=== PATIENT | male | born 1990 | race Caucasian/White ===

== ENCOUNTER 2020-09-03 09:02 | Emergency (ER) | payer MEDICAID ==
[~2020-09-03] VITALS: Ht 195.6 cm; Wt 86.0 kg
[2020-09-03 09:19] VITALS: BP 127/72
[2020-09-03] MEDS ORDERED: CLIN300C70 PO (09:37)
== END 2020-09-03 09:48 | disposition home or self-care (01) ==
LOC: ER 09:03
DX: K04.7 Periapical abscess without sinus (principal); Z79.899 Other long term (current) drug therapy
CPT/HCPCS: 99283

== ENCOUNTER 2021-07-15 19:09 | Inpatient (IN) | payer MEDICAID ==
[~2021-07-15] VITALS: Ht 200.7 cm; Wt 90.9 kg
[2021-07-15 20:53] LABS: BASOPHILS # (AUTO) 0.1 X10'3 (0-0.2); BASOPHILS % (AUTO) 0.6 % (0-1); EOSINOPHILS # (AUTO) 0.1 X10'3 (0-0.9); EOSINOPHILS % (AUTO) 1.8 % (0-6); HEMATOCRIT 39.9 % (42.0-52.0); HEMOGLOBIN 13.5 g/dl (14.0-17.9); LYMPHOCYTES # (AUTO) 1.9 X10'3 (1.1-4.8); MEAN CORPUSCULAR HEMOGLOBIN 30.2 PG (27.0-31.0); MEAN CORPUSCULAR HGB CONC 33.8 g/dL (33.0-36.5); MEAN CORPUSCULAR VOLUME 89.3 FL (78-98); MEAN PLATELET VOLUME 8.4 FL (7.4-10.4); MONOCYTES # (AUTO) 1.2 X10'3 (0-0.9); MONOCYTES % (AUTO) 14.2 % (2-12); NEUTROPHILS % (AUTO) 60.4 % (42-75); PLATELET COUNT 290 X10'3 (140-440); RED BLOOD COUNT 4.46 X10'6 (4.70-6.10); WHITE BLOOD COUNT 8.2 X10'3 (4.5-11.0)
--- NOTE | 2021-07-15 21:00 | NUR ---
Patient belongings in locker 24
[2021-07-15 22:51] LABS: CLARITY,URINE CLEAR (Clear); COLOR,URINE YELLOW (Yellow); GLUCOSE, URINE NEGATIVE (Neg); KETONES,URINE 80 mg/dl (Neg); LEUKOCYTE ESTERASE ,URINE NEGATIVE (Neg); NITRITES, URINE NEGATIVE (Neg); OCCULT BLOOD,URINE NEGATIVE (Neg); PROTEIN,URINE NEGATIVE (Neg); UA COLLECTION TYPE VOIDED; UROBILINOGEN,URINE 0.2 E.U/dL (0.2-1.0)
[2021-07-15 22:58] LABS: ANION GAP 8 (8-16); BILIRUBIN,TOTAL 0.4 MG/DL (0.1-1.0); BLOOD UREA NITROGEN 7 MG/DL (7-18); BUN/CREATININE RATIO 9.5 (5.4-32.0); CALCIUM 8.8 MG/DL (8.5-10.1); CHLORIDE 108 MMOL/L (99-107); CREATININE 0.74 MG/DL (0.60-1.10); GLUCOSE 86 MG/DL (70-104); POTASSIUM 3.8 MMOL/L (3.5-5.1); SODIUM 143 MMOL/L (135-145); TOTAL CARBON DIOXIDE 27.4 MMOL/L (24-32); eGFR > 90 ML/MIN
[2021-07-15 22:59] LABS: ALANINE AMINOTRANSFERASE 42 U/L (12-78); ALBUMIN/GLOBULIN RATIO 1.3 (1.1-1.5); ALKALINE PHOSPHATASE 63 IU/L (46-116); ASPARTATE AMINO TRANSFERASE 51 U/L (10-37); ETHANOL < 0.010 GM/DL (0.0-0.010); TOTAL PROTEIN 7.1 G/DL (6.4-8.2)
[2021-07-15 23:05] LABS: URINE AMPHETAMINE SCREEN NEGATIVE (Neg); URINE BARBITUATE SCREEN NEGATIVE (Neg); URINE BENZODIAZEPINES SCREEN NEGATIVE (Neg); URINE CANNABINOID SCREEN POSITIVE (Neg); URINE COCAINE SCREEN NEGATIVE (Neg); URINE METHADONE SCREEN NEGATIVE (Neg); URINE OPIATE SCREEN NEGATIVE (Neg); URINE PHENCYCLIDINE SCREEN NEGATIVE (Neg)
[2021-07-16] MEDS ORDERED: NO HOME MEDS (05:13)
--- NOTE | 2021-07-16 11:45 | NUR ---
RN received pt. from [facility] ER. Pt. is noticeably tense, pacing back and forth in his room. When RN approached pt. and introduced himself, pt. is jumpy and loudly responds, "I'm not crazy, I've just been in bed all day". Pt. given water and a sandwich. 1:1 done at bedside, Pt. reports he does not know why he is here, stating "I wrote a song about quiting work and my family put me in here". Pt. denies SI/HI, A/V hallucinations. Pt. states, "I have my son to live for. 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 reports increased anxiety and asks, "what can someone do for panic attacks?" RN informed pt. that Ativan can be given for breakthrough anxiety, pt. responds, "I don't want to take medications". RN asked if pt. was getting therapy, pt. responds, "I've been trying with VTEX but it takes forever". Pt. states, "I just need to get out of here and get a cigarette, RN asked pt. if he would like a nicotine patch and pt. refused.
--- NOTE | 2021-07-16 14:00 | NUR ---
Pt. asleep in be on left side. Normal R&R of respirations observed. Pt. in no apparent distress.
--- NOTE | 2021-07-16 16:00 | NUR ---
Pt. awoke and began pacing in his room. Pt. informed of being placed on a 5150. Pt. states, "I will be getting a boilermaker". Pt. continued pacing in his room.
[2021-07-16] MEDS ORDERED: nicotine 21mg patch - 24 hr TD ONE (17:35)
--- NOTE | 2021-07-16 18:00 | NUR ---
RN received phone call from Roney in [facility] stating that pt. has been accepted to [facility] per [facility] office (Shannan). Pt. is calm sitting in bed and eating dinner and reading a book.
--- NOTE | 2021-07-16 18:53 | NUR ---
Pt finishing up with dinner, pt calm and cooperative, pacing as he states "I just get tired of sitting" pt denies SI and states he feels depressed. Pt currently reading a book.
--- NOTE | 2021-07-16 20:28 | NUR ---
Pt awaiting to be transferred to [facility].
[2021-07-16] MEDS ORDERED: magnesium hydroxide 30ml (MOM) UD suspension PO PRN (20:55)
[2021-07-16] MEDS ORDERED: traZODone 50mg tablet PO PRN (20:55)
[2021-07-16] MEDS ORDERED: acetaminophen 325mg tablet PO PRN ×2 (20:55)
[2021-07-16] MEDS ORDERED: LORazepam 1 MG tablet PO PRN (20:55)
[2021-07-16] MEDS ORDERED: loperamide 2mg capsule PO PRN (20:55)
[2021-07-16] MEDS ORDERED: mag hydrox/Alum hydrox/simeth 30ml oral suspension PO PRN (20:55)
[2021-07-16 21:15] VITALS: BP 148/85
--- NOTE | 2021-07-16 22:52 | NUR ---
Nursing Progress Note: Admit to Behavioral Health Legal hold: 5150 Client on involuntary status for GD. Report received from nurse with use of SBAR . Why they are here: Patient brought to the ED by [facility] Crisis Team for a mental health evaluation. Patient has been having worsening delusions and paranoia and has been feeling increasingly unsafe since his birthday approximately 1 month ago. He denies any suicidal homicidal ideation. Patient lives with his significant other and their 7-year-old daughter. Per crisis steam roller operator the patient's family has had a difficult time living with the patient and concerned about their safety pulled him out of the house. Patient has also been having delusions where he feels that music is talking to him. He has no known psychiatric history. He is not on medications currently. In the ER the Patient stated that he feels fine and does not feel that he is having paranoia or delusions. Assessment What has happened this shift: Pt arrived ambulating on floor from the ED at 21:05. Accompanied by Golden His speech is rapid tangential at times. He says exaggerated Thank Yous for the smallest reason. For the situation he is inappropriately cheerful. He says he does not know why he is in the hospital other than that his girlfriend, that he lives with, wanted him here. He denies he is having paranoia or delusions. Pt says he does not remember the circumstances leading up to his admit. Otherwise his memory is intact. He was pleasant and cooperative with the admit process. Educated on PRNs available to him he declined any meds. Sat in bed and read for awhile asleep at this time. S/I, H/I: denies A/VH: denies Sleep: asleep at this time ADL's: independent Group attendance: NA Were meds taken: No routine meds ordered declined PRNs Any med S/E NA Mental Status Exam Appearance: Tall very thin well groomed Eye contact: intense at times Behavior: pleasant and cooperative Speech: rapid tangential at time Mood: hypomanic Affect: hypomanic Thought process: tangential at times Thought Content: Admit process and when will he be discharged Cognition: WNL Insight: none Judgment: poor Interventions PRN's used: none Therapeutic interventions: Provided 1:1 assessment with therapeutic communication and active listening, monitored behaviors and maintained clear boundaries, medication education/administration/monitoring, and Q 15 minute safety checks. Restraints/seclusion/emergency medication: N/A Justification of Continued Inpatient Treatment: Patient require a safe and therapeutic environment, and crisis intervention. Patient does not have a good safety plan for discharge at this time. He may require titrating medications to an effective doses to prevent decompensation and readmission
[2021-07-17] MEDS ORDERED: NICOTINE POLACRILEX 2 MG LOZENGE BC PRN (07:35)
[2021-07-17] MEDS: nicotine 21mg patch - 24 hr TD SCH (07:48)
[2021-07-17 08:02] VITALS: BP 156/76
[2021-07-17 09:10] LABS: HEMOGLOBIN A1C 6.6 % (4.5-6.2)
[2021-07-17 09:25] LABS: CHOL/HDL RATIO 2.1 (0.00-4.99); CHOLESTEROL 104 MG/DL (0-200); HDL CHOLESTEROL 49 MG/DL (35-60); LDL CHOLESTEROL 48 MG/DL (50-100); TRIGLYCERIDES 53 MG/DL (20-135)
--- NOTE | 2021-07-17 13:53 | NUR ---
Nursing Progress Note: Legal hold: 5150 Client on involuntary status for GD. Report received from nurse Bere GREENWOOD with use of SBAR . Why they are here: Patient brought to the ED by [facility] Crisis Team for a mental health evaluation. Patient has been having worsening delusions and paranoia and has been feeling increasingly unsafe since his birthday approximately 1 month ago. He denies any suicidal homicidal ideation. Patient lives with his significant other and their 7-year-old. Per crisis steam plant control room operator the patient's family has had a difficult time living with the patient and concerned about their safety pulled him out of the house. Patient has also been having delusions where he feels that music is talking to him. He has no known psychiatric history. He is not on medications currently. In the ER the Patient stated that he feels fine and does not feel that he is having paranoia or delusions. Assessment What has happened this shift: Pt was up before breakfast walking in the ayala. Asked pt his name. Pt stated that his friends call him Arron. Asked pt what this nurse should call him. Pt asked, "are you my friend?" replied that I was his nurse, pt stated "you can call me Arron." Pt states he smokes about a pack of cigarettes a day. Pt was receptive to a nicotine patch so an order was obtained and a 21 mg patch applied. Pt has been pleasant and cooperative with care. Pt reports that he is "wonderful!" Pt is restless with an elevated mood. Pt is animated during conversations. Pt denies depression, anxiety, SI/HI/AH/VH. Pt denies ever having difficulty sleeping. Pt asks how he could work if he didn't sleep good. Pt believes he is here because his friends and family are worried about him. When asked the pt why they might be worried about him he replied, "I don't know...because I like to write obscure poetry." Pt states that he is fine, he has a job, he owns his home. Asked about pt's job. 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 Pt does not see this as a problem. Pt states, "I can get a job anywhere, my resume is solid." S/I, H/I: Pt denies A/VH: Pt denies Sleep: Pt slept 5 hours last night per noc shift report. ADL's: Independent Group attendance: Yes Were meds taken: No routine meds ordered but a nicotine patch at this time. Any med S/E: N/A Mental Status Exam Appearance: Very tall, younger appearing white man wearing a hoodie with the rosales up. Eye contact: Good Behavior: Pleasant, cooperative, restless, paces in the hallway, makes phone calls. Speech: Clear, audible, talkative when spoken to. Mood: "Wonderful!" Affect: Animated. Thought process: Mildly disorganized, some grandiosity. Thought Content: He's wonderful, he's an open book, he can find a job anywhere, he wants to be outside, it's wonderful weather, rain doesn't bother him, "some people have to be out in it." Cognition: A/O X 3, disoriented as to reason for being here. Insight: Poor Judgment: Poor Interventions PRN's used: none Therapeutic interventions: 1:1 assessment with therapeutic communication and active listening, establishment of rapport, addressed nicotine withdrawal symptoms, reality testing, provided distraction, reality orientation, positive reinforcement, and Q15 minute safety checks. Restraints/seclusion/emergency medication: N/A Justification of Continued Inpatient Treatment: Pt need crisis interruption and stabilization in a safe and therapeutic environment until stable.
--- NOTE | 2021-07-17 16:36 | NUR ---
Group Art Tx Continued: Patient attended the group art therapy for the first time. Patient was responsive, yet guarded, however was able to understand, complete and share his heart drawing and journaling. The themes in his work focused on hope,his child and family. *Please refer to the [facility] Case Notes for entire overview. Moraima Craig MA, PLANT SECURITY GUARD #[id number] [facility], Art Therapist Addendum: 07/17/21 at 1637 by Moraima Craig SS Amended: Links added.
[2021-07-17 20:01] VITALS: BP 101/64
--- NOTE | 2021-07-17 23:03 | NUR ---
Nursing Progress Note: Legal hold: 5150 Client on involuntary status for GD. Report received from nurse Kb GREENWOOD with use of SBAR . Why they are here: Patient brought to the ED by [facility] Crisis Team for a mental health evaluation. Patient has been having worsening delusions and paranoia and has been feeling increasingly unsafe since his birthday approximately 1 month ago. He denies any suicidal homicidal ideation. Patient lives with his significant other and their 7-year-old. Per crisis steam generating powerplant mechanic the patient's family has had a difficult time living with the patient and concerned about their safety pulled him out of the house. Patient has also been having delusions where he feels that music is talking to him. He has no known psychiatric history. He is not on medications currently. In the ER the Patient stated that he feels fine and does not feel that he is having paranoia or delusions. Assessment What has happened this shift: Pt was up and pacing the ayala states "Im really great!" Pt requests a nicotine patch but already had one on. Pt states he threw it away. Pt was offered nicotine lozenges and pt declined saying "No, maybe it's a good time for me to quit smoking anyway while I'm here." Pt remained in a pleasant mood, made phone calls, spoke rapidly and continued to pace for most of the evening. Pt reports he has been sleeping "great." Pt states his mood is "great". S/I, H/I: Pt denies A/VH: Pt denies Sleep:see sleep hours ADL's: Independent Group attendance: Yes Were meds taken: no routine meds ordered, pt declined prns offered Any med S/E: N/A Mental Status Exam Appearance: Very tall, younger appearing white man wearing a hoodie with the rosales up. Eye contact: Good Behavior: Pleasant, cooperative, restless, paces in the hallway, makes phone calls. Speech: Clear, audible, talkative when spoken to. Mood: "Im great!" Affect: Animated. Thought process: Mildly disorganized, some grandiosity. Thought Content: "Im great, Im good, dont want to be a problem." Cognition: A/O X 3, disoriented as to reason for being here. Insight: Poor Judgment: Poor Interventions PRN's used: none Therapeutic interventions: 1:1 assessment with therapeutic communication and active listening, establishment of rapport, addressed nicotine withdrawal symptoms, reality testing, provided distraction, reality orientation, positive reinforcement, and Q15 minute safety checks. Restraints/seclusion/emergency medication: N/A Justification of Continued Inpatient Treatment: Pt need crisis interruption and stabilization in a safe and therapeutic environment until stable. Addendum: 07/18/21 at 0509 by Toya Reina RN Correction: Pt reports he threw his nicotine patch away and did not have one on at change of shift.
[2021-07-18] MEDS: nicotine 21mg patch - 24 hr TD SCH (07:34)
[2021-07-18 08:00] VITALS: BP 125/81
--- NOTE | 2021-07-18 13:50 | NUR ---
Claim Professional met w/pt and engaged him in completing his psychosocial. MSE: A/O x3 (person, place, time) Appearance: casual in street clothes Bxs: Cooperative & polite TP: Evasive & guarded TC: discharge, grandiose, some paranoiia Mood: Slightly elevated & irritable Speech: unremarkable Pt had an answer for every question asked but in reality did not provide much info about self, answers with a question when clinician asked more challenging questions. As pt provided very little info w/re to sxs & functional impairments, a diagnosis was not possible at this time. Chloé Villalobos LCSW Addendum: 07/18/21 at 1450 by Chloé Villalobos SS Amended: Links added.
--- NOTE | 2021-07-18 16:38 | NUR ---
Group Art Tx, Continued: Patient was responsive to the topic, drawing and sentence completion. He wrote: I am opening to a new season of change... I think the meaning of life is a wish. I feel happy to be listened to. I wish everyone could just be nicer to each other. I want a better life for me and my family. I need love and support from friends and family.I will try my hardest to help everyone in need. I believe in friendship. I am doing the best I can." Patient was interactive and supportive of his peers. *Please refer to the [facility] Case Notes for entire overview. Moraima Craig MA, AIR TRAFFIC CONTROL SPECIALIST #[id number] [facility], Art Therapist Addendum: 07/18/21 at 1640 by Moraima Craig SS Amended: Links added.
--- NOTE | 2021-07-18 18:09 | NUR ---
Nursing Progress Note: Legal hold: 5150 Client on involuntary status for GD. Report received from TIMO Blackburn with use of SBAR. Why they are here: Patient brought to the ED by [facility] Crisis Team for a mental health evaluation. Patient has been having worsening delusions and paranoia and has been feeling increasingly unsafe since his birthday approximately 1 month ago. He denies any suicidal homicidal ideation. Patient lives with his significant other and their 7-year-old. Per crisis cylinder steamer the patient's family has had a difficult time living with the patient and concerned about their safety pulled him out of the house. Patient has also been having delusions where he feels that music is talking to him. He has no known psychiatric history. He is not on medications currently. In the ER the Patient stated that he feels fine and does not feel that he is having paranoia or delusions. Assessment What has happened this shift: Patient resting quietly in bed at the start of the shift. Awake prior to breakfast pacing the unit. Cooperative with 1:1 assessment. Spends much of the pacing the unit, sometimes while talking on the phone. Somewhat irritable during one phone conversation but is otherwise pleasant/ cheerful. Say, Hello! enthusiastically when passing in the hallway. States he does not know why his family wanted him to come here. States he has a job and is doing, Wonderful. Does not appear to be occupied with internal stimuli. Somewhat fidgety during conversation. S/I, H/I: Denies A/VH: Denies Sleep: 7.75 hours per NOC. ADL's: Independent Group attendance: Yes Were meds taken: Yes Any med S/E: None observed or reported Mental Status Exam Appearance: Tall, younger appearing white male wearing green unit scrub bottoms and black hoodie with rosales up. Eye contact: Good Behavior: Pleasant, cooperative, restless, paces hallway, talks on the phone Speech: Clear, audible, talkative. Mood: A little irritated I have to be here for 2 more days, but other than that great. Affect: Animated. Thought process: Linear. Tangential at times. Thought Content: Does not understand why he is here and wants to discharge. Cognition: A/O X 3, disoriented as to reason for being here. Insight: Poor Judgment: Poor Interventions PRN's used: none Therapeutic interventions: 1:1 assessment with therapeutic communication and active listening, establishment of rapport, addressed nicotine withdrawal symptoms, reality testing, provided distraction, reality orientation, positive reinforcement, and Q15 minute safety checks. Restraints/seclusion/emergency medication: N/A Justification of Continued Inpatient Treatment: Pt need crisis interruption and stabilization in a safe and therapeutic environment until stable.
[2021-07-18 19:45] VITALS: BP 119/83
[2021-07-18] MEDS: divalproex sod 250mg ER (24-hour) tablet PO SCH (20:17)
--- NOTE | 2021-07-18 20:40 | NUR ---
PT REPORTS HE THREW AWAY HIS NICOTINE PATCH
--- NOTE | 2021-07-18 20:48 | NUR ---
Nursing Progress Note: Legal hold: 5150 Client on involuntary status for GD. Report received from TIMO Quiles with use of SBAR. Why they are here: Patient brought to the ED by [facility] Crisis Team for a mental health evaluation. Patient has been having worsening delusions and paranoia and has been feeling increasingly unsafe since his birthday approximately 1 month ago. He denies any suicidal homicidal ideation. Patient lives with his significant other and their 7-year-old. Per crisis steam and power superintendent the patient's family has had a difficult time living with the patient and concerned about their safety pulled him out of the house. Patient has also been having delusions where he feels that music is talking to him. He has no known psychiatric history. He is not on medications currently. In the ER the Patient stated that he feels fine and does not feel that he is having paranoia or delusions. Assessment What has happened this shift: Pt is pacing in the halls at change of shift. Pt states he is ready to go home and doesnt want to miss spending Halloween with his 7 year old son. Pt is requesting to take meds. P/C to provider and pt is starting depakote tonight. Provided patient with education on s/e of medication. Pt states "I only want to take the lowest form of medicine to not change my brain chemistry too much, but this is ok." Pt spent time pacing and talking to his family on the phone. Pt is cooperative, reports that he threw away his nicotine patch this morning and felt "peer pressured" to put one on but gave it to a nurse immediately after. Pt states he has quit smoking and feels great! Asked patient if I can check for it and he replied "I dont see the reason for that, I took it off." Pt requested a shower and took shower tonight. S/I, H/I: Denies A/VH: Denies Sleep: see sleep hours ADL's: Independent Group attendance: no evening groups Were meds taken: Yes Any med S/E: None observed or reported Mental Status Exam Appearance: Tall, younger appearing white male wearing green unit scrub bottoms and black hoodie with rosales up. Eye contact: Good Behavior: Pleasant, cooperative, restless, paces hallway, talks on the phone Speech: Clear, audible, talkative. Mood: euthymic, but somewhat labile, gets easily agitated but quickly smiles and corrects himself states "Oh its ok I'm happy, Im doing good so I can go home soon." Affect: Animated. Thought process: Linear. Tangential at times. Thought Content: Does not understand why he is here and wants to discharge. Cognition: A/O X 3, disoriented as to reason for being here. Insight: Poor Judgment: Poor Interventions PRN's used: none Therapeutic interventions: 1:1 assessment with therapeutic communication and active listening, establishment of rapport, addressed nicotine withdrawal symptoms, reality testing, provided distraction, reality orientation, positive reinforcement, and Q15 minute safety checks. Restraints/seclusion/emergency medication: N/A Justification of Continued Inpatient Treatment: Pt need crisis interruption and stabilization in a safe and therapeutic environment until stable.
[2021-07-19] MEDS: nicotine 21mg patch - 24 hr TD SCH (07:15)
[2021-07-19 07:45] VITALS: BP 121/71
--- NOTE | 2021-07-19 08:07 | NUR ---
Initial: Pt admit DX bipolar d/o, hypomanic episode per EMR. PO mostly ~100% avg regular diet meeting needs. LBM 07/17. No nutrition intervention at this time. Will continue to monitor. Rec: 1. continue regular diet 2. bowel care per rx 3. weekly wts Addendum: 07/19/21 at [address] Amended: Links added.
--- NOTE | 2021-07-19 08:24 | NUR ---
DCP Presenting Issues: Pt's 5150 will belen, per consult w/attending MD, pt will d/c tomorrow. Interventions: Clinician met w/pt and engaged him in dcp activities, per session, pt agreed to a referral to [facility] for outpatient services. Pt will call family/friend for a ride home upon d/c. Clinician contacted [facility] to coordinate post-hospital appointment for pt, per t/c, clinician faxed referral to [facility], their field education coordinator will contact pt upon d/c to provide intake & post-hospital follow-up appointment. Plan: Pt to d/c tomorrow morning. Chloé Villalobos LCSW Addendum: 07/19/21 at 0833 by Chloé Villalobos SS Amended: Links added.
--- NOTE | 2021-07-19 14:00 | NUR ---
Group Art Tx Continued: Patient attended the group having good focus and attitude. Patient completed his Self Care wheel and his Clean Up Helper Banquet on "My Steps to Wellness." Patient identified reality based coping skills and steps he could integrate and further develop once discharged. Patient was pleasant, appropriately interactive having positive supportive comments to his peers. *Please refer to the [facility] Case Notes for entire overview. Moraima Craig MA, SHOTGUN SHELL LOADING MACHINE OPERATOR #[id number] [facility], Art Therapist Addendum: 07/19/21 at 1643 by Moraima BAKER Amended: Links added.
--- NOTE | 2021-07-19 14:00 | NUR ---
Nursing Progress Note: Legal hold: 5150 Client on involuntary status for GD. Report received from nurse Bere GREENWOOD with use of SBAR . Why they are here: Patient brought to the ED by [facility] Crisis Team for a mental health evaluation. Patient has been having worsening delusions and paranoia and has been feeling increasingly unsafe since his birthday approximately 1 month ago. He denies any suicidal homicidal ideation. Patient lives with his significant other and their 7-year-old. Per crisis steam roller operator the patient's family has had a difficult time living with the patient and concerned about their safety pulled him out of the house. Patient has also been having delusions where he feels that music is talking to him. He has no known psychiatric history. He is not on medications currently. In the ER the Patient stated that he feels fine and does not feel that he is having paranoia or delusions. Assessment What has happened this shift: Pt was up before breakfast. Pt refused his nicotine patch this morning stating that he is done with them, he doesn't need them anymore. Pt denied depression, anxiety, SI/HI/AH/VH. Pt reported that he is "Good, I'm good!" although his affect wasn't congruent and his response seemed forced. Pt paced the unit, pt went to group. Pt was pleasant and cooperative, no unsafe behaviors noted. The plan is for pt to be discharged home tomorrow morning. S/I, H/I: Pt denies A/VH: Pt denies Sleep: Pt slept 6.5 hours last night per noc shift report. ADL's: Independent Group attendance: Yes Were meds taken: Pt refused his nicotine patch, no other meds ordered in the morning, no PRNs needed. Any med S/E: None noted or reported. Mental Status Exam Appearance: Very tall, younger appearing white man wearing a black hoodie and scrub pants. Eye contact: Good Behavior: Pleasant, cooperative, restless, paces in the hallway, makes phone calls. Speech: Clear, audible, minimal, mostly only speaks when spoken to. Mood: "Good!" Affect: Incongruent, mildly irritable and guarded. Thought process: Linear Thought Content: Focused on discharge, wants to get home to his son for Halloween. Cognition: A/O X 4 Insight: Poor Judgment: Fair Interventions PRN's used: none Therapeutic interventions: 1:1 assessment with therapeutic communication and active listening, establishment of rapport, encouragement to attend groups, positive reinforcement, and Q15 minute safety checks. Restraints/seclusion/emergency medication: N/A Justification of Continued Inpatient Treatment: Pt needed crisis interruption and stabilization in a safe and therapeutic environment. He has been stated on Depakote. The plan is for him to discharge home tomorrow and follow up with [facility].
--- NOTE | 2021-07-19 15:53 | NUR ---
Group Art Tx Continued: Patient was responsive to both activities, completing and sharing during the group process. Patient was supportive and interactive with his peers. *Please refer to the [facility] Case Notes for entire overview. Moraima Craig MA, CLINICAL REVIEW NURSE #[id number] [facility], Art Therapist Addendum: 07/19/21 at 1554 by Moraima Craig SS Amended: Links added.
[2021-07-19 19:55] VITALS: BP 125/78
[2021-07-19] MEDS: divalproex sod 250mg ER (24-hour) tablet PO SCH (20:38)
--- NOTE | 2021-07-20 00:10 | NUR ---
Nursing Progress Note: Legal hold: 5250 Client on involuntary status for GD. Report received from nurse Pardeep GREENWOOD with use of SBAR . Why they are here: Patient brought to the ED by [facility] Crisis Team for a mental health evaluation. Patient has been having worsening delusions and paranoia and has been feeling increasingly unsafe since his birthday approximately 1 month ago. He denies any suicidal homicidal ideation. Patient lives with his significant other and their 7-year-old. Per crisis steam conditioner filling the patient's family has had a difficult time living with the patient and concerned about their safety pulled him out of the house. Patient has also been having delusions where he feels that music is talking to him. He has no known psychiatric history. He is not on medications currently. In the ER the Patient stated that he feels fine and does not feel that he is having paranoia or delusions. Assessment What has happened this shift: Pt was up before breakfast. Patient pacing the ayala and talking on the phone at the beginning of shift. Pleasant and cooperative with care; compliant with medication. Patient denies SI, HI, A/VH; does not appear to be responding to IS and no delusional thought content expressed. Patient reports, "feeling much better now that [he] is able to talk to people that care to listen." Patient showered and participated in HS snack prior to bed; observed sleeping and does not appear to be having difficulty. Patient was provided 5250 this shift by DIANE Lugo; appeared to tolerate well. S/I, H/I: Denies A/VH: Denies Sleep: Refer to sleep assessment ADL's: Independent Group attendance: NA Were meds taken: Yes Any med S/E: None observed or reported Mental Status Exam Appearance: Showered, neat, and appropriately dressed for the unit Eye contact: Good Behavior: Pleasant and cooperative, social, pacing Speech: Clear, audible, regular rate/rhythm Mood: Euthymic Affect: Congruent to mood Thought process: Linear Thought Content: Meeting needs Cognition: A/O X 4 Insight: Poor Judgment: Fair Interventions PRN's used: None Therapeutic interventions: 1:1 assessment with therapeutic communication and active listening, establishment of rapport, encouragement to attend groups, positive reinforcement, and Q15 minute safety checks. Restraints/seclusion/emergency medication: NA Justification of Continued Inpatient Treatment: Pt needed crisis interruption and stabilization in a safe and therapeutic environment. He has been stated on Depakote. The plan is for him to discharge home tomorrow and follow up with [facility].
[2021-07-20] MEDS: nicotine 21mg patch - 24 hr TD SCH (07:02)
[2021-07-20 07:43] VITALS: BP 118/73
[2021-07-20] MEDS ORDERED: NICO-687 TD (12:45)
[2021-07-20] MEDS ORDERED: DIVA500T9 PO (12:45)
--- NOTE | 2021-07-20 16:07 | NUR ---
Discharge Note: Reviewed discharge plan and paperwork with patient including smoking cessation information. States, Im done smoking. I was trying to quit and you guys pushed me over the edge. Patient agreeable to discharge home to self-care. States, I feel great about it. Ill get to spend Halloween with my son. Prescriptions sent to [facility]. Escorted off of the unit by staff at 14:45 with all of his belongings and picked up by a friend. Discharged with the following instructions: Follow-Up: Patient has been scheduled/referred to the following providers for post-hospital discharge and aftercare treatment. Psychiatrist: You have been referred to [facility]. The volunteer services coordinator will contact you at [phone] following your discharge to schedule your post-hospital follow-up medication appointment & intake. [address] [address] Primary Care Provider: You are encouraged contact your primary care provider and request for a post-hospital follow-up appointment. Therapist: You will be assigned a therapist after completing the intake assessment at [facility]. Discharge Address: [address] [place] [address] Transportation: Pt will call family/friend for a ride home. Patient given community crisis services information and National suicide hotline handout. Please call [phone] for your second outpatient smoking cessation appointment. Resources for education regarding mental illness: [address] [address] For urgent mental health crisis needs please contact Mobile Crisis Outreach Team Friday through Friday 8:30a to 5:00pm. [facility] Crisis Out[facility] Team [address] [place] [id number]
== END 2021-07-20 14:43 | disposition home or self-care (01) | DRG 753 ==
LOC: ER 19:09 → ED HOLD 07-16 18:00 → ADULT MH 07-16 20:49
PROVIDERS: ADMIT Psychiatry & Neurology Psychiatry; ATTEND Psychiatry & Neurology Psychiatry
DX: F31.0 Bipolar disorder, current episode hypomanic (principal); F22 Delusional disorders; F12.10 Cannabis abuse, uncomplicated; Z20.822 Contact with and (suspected) exposure to COVID-19; F90.9 Attention-deficit hyperactivity disorder, unspecified type; F17.210 Nicotine dependence, cigarettes, uncomplicated; Z79.899 Other long term (current) drug therapy; Z81.8 Family history of other mental and behavioral disorders; Z71.6 Tobacco abuse counseling
CPT/HCPCS: 36415; 80053; 80061; 80305; 80320; 81003; 83036; 84443; 85025; 87081; 87635; 99285; C9803